=== PATIENT | male | born 1985 | race African-American/Black ===

== ENCOUNTER 2022-09-13 04:26 | Emergency (ER) | payer MEDICAID, OTHER ==
[~2022-09-13] VITALS: Ht 190.5 cm; Wt 97.5 kg
--- NOTE | 2022-09-13 05:00 | NUR ---
bibs noticed yellow discharge and dysuria x 3 days
--- NOTE | 2022-09-13 05:01 | NUR ---
URINE COLLECTED AND SENT TO LAB
--- NOTE | 2022-09-13 05:03 | NUR ---
DR REBEKAH RAMIREZ AT PT'S BEDSIDE FOR EVAL
[2022-09-13] MEDS ORDERED: AZIT1PAC PO (05:08)
[2022-09-13 05:13] VITALS: BP 125/71
--- NOTE | 2022-09-13 05:13 | NUR ---
Patient discharged to home in stable condition. RX Written and verbal after care instructions given. Patient verbalizes understanding of instruction.
== END 2022-09-13 05:22 | disposition home or self-care (01) ==
LOC: ER 04:33
DX: N34.2 Other urethritis (principal)